=== PATIENT | female | born 1995 | race Caucasian/White ===

== ENCOUNTER 2017-10-21 22:45 | Emergency (ER) | payer OTHER ==
--- NOTE | 2017-10-21 22:47 | EDPHY ---
H & P Time Seen by Provider: 10/21/17 22:47 HPI/ROS: HPI CHIEF COMPLAINT: Sore throat, right ear pain HISTORY OF PRESENT ILLNESS: Patient is a 22-year-old female, otherwise healthy , currently being treated for strep pharyngitis on clindamycin, she presents emergency room with right ear pain and sore throat. She has been taking her clindamycin however her right ear has been hurting her this evening. She is not drooling. She is nontoxic appearing. She has no fever. She is able to swallow appropriately but has pain when she swallows. Main complaint this evening right ear pain/sore throat. Denies fever muscle aches joint pain, denies neck stiffness or headache. Past Medical History: Denies medical history Past Surgical History: Denies surgical history Social History: Denies drugs alcohol tobacco. Family History: Noncontributory ROS REVIEW OF SYSTEMS: A comprehensive 10 point review of systems is otherwise negative aside from elements mentioned in the history of present illness. Exam Constitutional nontoxic appearing, appears well, slightly anxious, triage nursing summary reviewed, vital signs reviewed, awake/alert. Eyes normal conjunctivae and sclera, EOMI, PERRLA. HENT posterior pharynx uvula is midline, erythema present, the right tonsillar bed is more full than the left tonsillar bed, could possibly be an early CONE FORMER. Additionally the right TM is erythematous and bulging left TM clear, moist mucus membranes, no epistaxis, neck supple/ no meningismus, no raccoon eyes. No mastoid tenderness on exam. Respiratory clear to auscultation bilaterally, normal breath sounds, no respiratory distress, no wheezing. Cardiovascular rate normal, regular rhythm, no murmur, no edema, distal pulses normal. Gastrointestinal soft, non-tender, no rebound, no guarding, normal bowel sounds, no distension, no pulsatile mass. Genitourinary no CVA tenderness. Musculoskeletal no midline vertebral tenderness, full range of motion, no calf swelling, no tenderness of extremities, no meningismus, good pulses, neurovascularly intact. Skin pink, warm, & dry, no rash, skin atraumatic. Neurologic awake, alert and oriented x 3, AAOx3, moves all 4 extremities equally, motor intact, sensory intact, CN II-XII intact, normal cerebellar, normal vision, normal speech. Psychiatric normal mood/affect. Heme/Lymph/Immune no lymphadenopathy. Differential Diagnosis: Includes but is not limited to in a particular order viral pharyngitis, strep pharyngitis, CONE FORMER orally, otitis media, middle ear effusion. Medical Decision Making: Plan for this patient Decadron 10 mg, ibuprofen 800 mg , and [place] 5 mg for acute pain control. I will refer her to ENT tomorrow. Her right tonsillar bed is somewhat swollen compared to left there is some asymmetry. Very mild. Uvula midline. No stridor. She is drinking appropriately. Plan tonight for pain control. Continue clindamycin. For close follow up with ENT. 2301: How long discussion with the patient and boyfriend at bedside. Recommend close follow up with ENT. She is drinking cold fluids at this time. I have ordered her Decadron, [place] and ibuprofen. Take-home pack of [place], continue clindamycin. Also recommend anti- inflammatory pain medicine like ibuprofen every 6-8 hours. Return precautions discussed well high fever vomiting trouble breathing trouble swallowing. They understand. 2335; patient re-evaluated feeling better after pain control here in emergency room. Prescriptions provided for Decadron, ibuprofen and limited supply of [place]. Understands follow-up with ENT. Return precautions discussed. She understands Source: Patient Constitutional: Initial Vital Signs Temperature (C) 36.8 C 10/21/17 22:46 Heart Rate 128 H 10/21/17 22:46 Respiratory Rate 18 10/21/17 22:46 Blood Pressure 130/87 H 10/21/17 22:46 O2 Sat (%) 98 10/21/17 22:46 O2 Delivery Mode Room Air Allergies/Adverse Reactions: No Known Allergies Allergy (Unverified 10/21/17 22:49) Home Medications: Medication Instructions Recorded Birthcontrol 10/21/17 Dexamethasone [Decadron 4 MG (*)] 8 mg PO DAILY #4 tab 10/21/17 Ibuprofen [Motrin (*)] 800 mg PO Q6-8PRN #14 tab 10/21/17 Medical Decision Making - Data Points Medications Given: Discontinued Medications Hydrocodone Bitart/Acetaminophen ([place] 5/325mg Prepack#6) 1 btl TAKEHOME EDNOW ONE Stop: 10/21/17 22:54 Last Admin: 10/21/17 23:06 Dose: 1 btl Hydrocodone Bitart/Acetaminophen ([place] 5/325) 1 tab PO EDNOW ONE Stop: 10/21/17 22:54 Last Admin: 10/21/17 23:06 Dose: 1 tab Dexamethasone (Decadron) 10 mg PO EDNOW ONE Stop: 10/21/17 22:53 Last Admin: 10/21/17 23:05 Dose: 10 mg Ibuprofen (Motrin) 800 mg PO EDNOW ONE Stop: 10/21/17 22:53 Last Admin: 10/21/17 23:06 Dose: 800 mg Departure - Departure Disposition: Home, Routine, Self-Care Clinical Impression: Otitis media Qualifiers: Otitis media type: suppurative Chronicity: acute Laterality: right Recurrence: not specified as recurrent Spontaneous tympanic membrane rupture: without spontaneous rupture Qualified Code(s): H66.001 - Acute suppurative otitis media without spontaneous rupture of ear drum, right ear Pharyngitis Qualifiers: Pharyngitis/tonsillitis etiology: streptococcus Qualified Code(s): J02.0 - Streptococcal pharyngitis Condition: Fair Instructions: Hydrocodone/Acetaminophen (By mouth), Pharyngitis (ED), Strep Throat (ED), Ear Infection (ED) Additional Instructions: 1. Drink lots of fluids stay well-hydrated. 2. Anti-inflammatory pain medicine for pain control. 3. Decadron for pain control as prescribed. 4. Continue her clindamycin on a full stomach. 5. Follow up with [facility]. He need to be seen by them tomorrow. Call for an appointment. Referrals: Catarina Roberts MD [Primary Care Provider] - As per Instructions Zak Weiss MD [Medical Doctor] - As per Instructions Prescriptions: Dexamethasone [Decadron 4 MG (*)] 8 mg PO DAILY #4 tab Ibuprofen [Motrin (*)] 800 mg PO Q6-8PRN #14 tab
[2017-10-21] MEDS ORDERED: DEXAMETHASONE 4 MG TAB PO ONE (22:52)
[2017-10-21] MEDS ORDERED: IBUPROFEN 800 MG TAB PO ONE (22:52)
[2017-10-21] MEDS ORDERED: HYDROCODONE/APAP 5/325 TAB PO ONE (22:53)
[2017-10-21] MEDS ORDERED: HYDROCOD/APAP 5/325 PREPACK#6 BTL TAKEHOME ONE (22:53)
[2017-10-21 23:27] VITALS: BP 142/106
== END 2017-10-21 23:59 | disposition home or self-care (01) ==
DX: J02.0 Streptococcal pharyngitis (principal); H66.001 Acute suppurative otitis media without spontaneous rupture of ear drum, right ear

== ENCOUNTER 2018-12-12 22:05 | Emergency (ER) | payer OTHER | END 2018-12-12 22:47 | disposition home or self-care (01) ==